=== PATIENT | female | born 1965 | race Caucasian/White ===

== ENCOUNTER 2020-09-29 12:13 | Emergency (ER) | payer OTHER ==
[~2020-09-29] VITALS: Ht 152.4 cm; Wt 72.6 kg
[~2020-09-29 12:13] MED LIST: ACET325; ALBU3IS INH; ALBU90I INH; ALBU90OI INH; AMOX500 PO; BLACK COHOSH ROOT; CIPR250 PO; CYCL10 PO; DOXY100 PO; FLUTICASONE-SA1 EAC1 INH; HYDACE5 PO; HYDMOR2 PO; HYDPAM25 PO; LEVFLO500 PO; METPRE4DP; MULVITA; NAPR500 PO; NAPR550 PO; NORTRIPTYLINE H10 MG; PENVK500 PO; PRAZ1; PRED10 PO; PRED20 PO; PROM25 PO; RANI150 PO; RXPROACE PO; SERT50; SPACER IH; SPIRIVA RESPIMAT4 G3; TRAM50 PO; TRAZ100 PO; TUDORZA PRESS400 MCG INH; VENL150ER
[2020-09-29] MEDS ORDERED: Percocet 5-3251 EACH PO (13:48)
[2020-09-29] MEDS ORDERED: CRUTCH2 XX (13:50)
== END 2020-09-29 14:00 | disposition home or self-care (01) ==
LOC: ER 12:13
DX: S82.841A Displaced bimalleolar fracture of right lower leg, initial encounter for closed fracture (principal); J44.9 Chronic obstructive pulmonary disease, unspecified; Z91.040 Latex allergy status; Z88.8 Allergy status to other drugs, medicaments and biological substances; Z88.5 Allergy status to narcotic agent; Z88.2 Allergy status to sulfonamides; Z79.899 Other long term (current) drug therapy; Z87.891 Personal history of nicotine dependence
CPT/HCPCS: 29515; 73610; 96372-59; 99283-25; A9270; J3010

== ENCOUNTER 2020-10-08 14:17 | Day surgery (SDC) | payer OTHER ==
[~2020-10-08] VITALS: Ht 152.4 cm; Wt 76.5 kg
[~2020-10-08 14:17] MED LIST changes: +CRUTCH2 XX; +Percocet 5-3251 EACH PO
== END 2020-10-08 18:32 | disposition home or self-care (01) ==
LOC: ORSCSDS 14:17
PROVIDERS: Orthopaedic Surgery
PROC: 0QSJ04Z Reposition Right Fibula with Internal Fixation Device, Open Approach (ICD-10-PCS; principal; 2020-10-08 15:30)
DX: S82.61XA Displaced fracture of lateral malleolus of right fibula, initial encounter for closed fracture (principal); S93.431A Sprain of tibiofibular ligament of right ankle, initial encounter; I10 Essential (primary) hypertension; J44.9 Chronic obstructive pulmonary disease, unspecified; F41.8 Other specified anxiety disorders; Z79.899 Other long term (current) drug therapy
CPT/HCPCS: C1713; C1769; C1776; J0690; J1100; J1885; J2250; J2405; J2704; J2795; J3010; J7120

== ENCOUNTER 2023-04-05 07:44 | Day surgery (SDC) | payer OTHER ==
[~2023-04-05] VITALS: Ht 152.4 cm; Wt 64.9 kg
[2023-04-05] VITALS (15 sets, daily range): BP systolic 93–127; BP diastolic 30–86
[~2023-04-05 07:44] MED LIST changes: -NORTRIPTYLINE H10 MG; +NORTRIPTYLINE H10 MG PO; -PRAZ1; +PRAZ1 PO
--- NOTE | 2023-04-05 08:33 | NUR ---
Patient up to Ambulate independently. Gait steady. History, Chart, Medications and Allergies reviewed before start of procedure. Lungs clear T/O to Auscultation. Patient confirms NPO status and agrees with scheduled surgery. Pre-Op teaching done. Pt verbalizes understanding. Patient States Post-Procedure ride home has been arranged WITH FRIEND MJ.
--- NOTE | 2023-04-05 08:48 | NUR ---
04/05/23 0848 Abigail Ocampo HISTORY, CHART, MEDICATIONS AND ALLERGIES REVIEWED BEFORE START OF PROCEDURE. PATIENT CONFIRMS NPO STATUS AND AGREES WITH SCHEDULED PROCEDURE. 3-LEAD EKG REVIEWED WITH PHYSICIAN PRIOR TO START OF PROCEDURE. MONITOR INTACT WITH CONTINUOUS PULSE OXIMETRY,CAPNOGRAPHY, 3-LEAD EKG, INTERMITTENT BP. SUPPLEMENTAL O2 TO BE TITRATED THROUGHOUT PROCEDURE TO MAINTAIN O2 SATURATION ABOVE 90%. PATIENT DETERMINED TO BE ASA APPROPRIATE FOR PROPOFOL SEDATION PRIOR TO START OF PROCEDURE BY .
--- NOTE | 2023-04-05 09:22 | NUR ---
REPORT FROM BHARATHI VALLEJO RN. PT TOLERATING PO FLUIDS. REQUESTING TO GET DRESSED AND GO HOME.
--- NOTE | 2023-04-05 09:48 | NUR ---
Patient up to Ambulate independently. Gait steady. Discharge instructions reviewed with patient. Patient verbalizes understanding. Copy given to patient to take home. Patient States Post-Procedure ride home has been arranged. Discharged via wheelchair to private car for ride home. ALL BELONGINGS RETURNED TO PATIENT TO INCLUDE ONE PAIR OF READING GLASSES AND PHONE.
== END 2023-04-05 22:53 | disposition home or self-care (01) ==
LOC: ORSCMMR 07:44 → ORD 08:30 → ORSCMMR 22:53
PROVIDERS: Internal Medicine Gastroenterology
PROC: 0DJD8ZZ Inspection of Lower Intestinal Tract, Via Natural or Artificial Opening Endoscopic (ICD-10-PCS; principal; 2023-04-05 08:30)
DX: Z12.11 Encounter for screening for malignant neoplasm of colon (principal); F32.A Depression, unspecified; R73.03 Prediabetes; Z79.899 Other long term (current) drug therapy
CPT/HCPCS: 82947; J2704; J7120

== ENCOUNTER 2023-07-27 09:13 | Day surgery (SDC) | payer OTHER ==
[~2023-07-27] VITALS: Ht 152.4 cm; Wt 66.9 kg
[2023-07-27] VITALS (10 sets, daily range): BP systolic 101–128; BP diastolic 65–88
[2023-07-27] MEDS ORDERED: FentaNYL Citrate 50 MCG/ML 2 ML Injection ONE (09:30)
[2023-07-27] MEDS ORDERED: propofoL 20 ML IV ONE (09:30)
[2023-07-27] MEDS ORDERED: Midazolam HCl 1MG / ML 2ML Vial ONE ×2 (09:30→11:00)
[2023-07-27] MEDS ORDERED: Lactated Ringer's 1,000 ML IV SCH (09:35)
[2023-07-27] MEDS ORDERED: CeFAZolin Sodium 2,000 MG in NS 50 ML IV SCH (09:35)
--- NOTE | 2023-07-27 10:07 | NUR ---
Ambulatory in Day Surgery History, Chart, Medications and Allergies reviewed before start of procedure. Pre-Op teaching done. Pt verbalizes understanding. Patient States Post-Procedure ride home has been arranged.
[2023-07-27] MEDS ORDERED: Bupivacaine 0.5% HCl 5 MG/ML 30MLVIAL ONE (10:44)
[2023-07-27] MEDS ORDERED: Lidocaine HCL 1% 10 ML MDV ONE (10:45)
[2023-07-27] MEDS ORDERED: Ondansetron HCl 2 MG / ML 2ML Vial IV PRN (11:10)
[2023-07-27] MEDS ORDERED: FentaNYL Citrate 50 MCG/ML 2 ML Injection IV PRN ×2 (11:10)
[2023-07-27] MEDS ORDERED: Morphine Sulfate 4 MG/1 ML Injection IV PRN (11:10)
[2023-07-27] MEDS ORDERED: Dexamethasone Sodium Phosphate 4 MG/ML 5ML VIAL IV PRN (11:10)
[2023-07-27] MEDS ORDERED: Labetalol HCL 5 MG/ML 4ML Injection (Single Dose) IV PRN (11:15)
--- NOTE | 2023-07-27 12:53 | NUR ---
Discharge instructions reviewed with patient. Patient verbalizes understanding. Copy given to patient to take home. Patient States Post-Procedure ride home has been arranged. Discharged via wheelchair to private car for ride home.
== END 2023-07-27 12:54 | disposition home or self-care (01) ==
LOC: ORSCMMR 09:13 → ORD 09:13 → ORSCMMR 12:54 → ORD 07-28 00:20
PROVIDERS: Surgery
PROC: 0JH63WZ Insertion of Totally Implantable Vascular Access Device into Chest Subcutaneous Tissue and Fascia, Percutaneous Approach (ICD-10-PCS; principal; 2023-07-27 10:15)
PROC: B544ZZA Ultrasonography of Left Jugular Veins, Guidance (ICD-10-PCS; principal; 2023-07-27 10:15)
PROC: 05HN33Z Insertion of Infusion Device into Left Internal Jugular Vein, Percutaneous Approach (ICD-10-PCS; principal; 2023-07-27 10:15)
DX: C50.811 Malignant neoplasm of overlapping sites of right female breast (principal); F17.210 Nicotine dependence, cigarettes, uncomplicated; J44.9 Chronic obstructive pulmonary disease, unspecified; Z79.899 Other long term (current) drug therapy
CPT/HCPCS: 77001; C1788; J0690; J1642; J2001; J2250; J2704; J3010; J7120

== ENCOUNTER 2023-10-29 08:43 | Day surgery (SDC) | payer OTHER | END 2023-10-29 22:43 | disposition home or self-care (01) | LOC: MOI US 08:43 | DX: C50.311 Malignant neoplasm of lower-inner quadrant of right female breast (principal) ==

== ENCOUNTER → 2023-12-09 | Outpatient (CLI) | payer OTHER ==
[~2023-12-09] MED LIST changes: +ALBU2.5V5 INH; +Flonase 0.05% N16 GM; +ONDA8 PO; -VENL150ER; +VENL150ER PO
== END ==
LOC: LAB 11:38 → LAB SHORT 11:38
DX: T81.49XA Infection following a procedure, other surgical site, initial encounter (principal)
CPT/HCPCS: 87070; 87075; 87147; 87205